=== PATIENT | female | born 1980 | race Caucasian/White ===

== ENCOUNTER 2024-06-16 16:09 | Emergency (ER) | payer MEDICAID, SELFPAY ==
[2024-06-16 16:55] VITALS: BP 135/83; PULSE 68; RESP 18; TEMP 36.8; O2SAT 98; BMI 27.1
--- NOTE | 2024-06-16 17:05 | XR_ITS ---
Examination: CT abdomen and pelvis without contrast. Coronal 3-D reconstructions. Sagittal 2-D reconstructions. Date and time of exam:June 16, 2024 1847 hours Comparison August 12, 2022 INDICATIONS: Right flank pain onset today CTDI: vol (mGy): 8 DLP: (mGycm): 451 Technique: Axial images of the abdomen have been obtained, 3 mm slice thickness Intravenous contrast material has not been administered. Low dose protocols were performed. One or more of the following dose reduction techniques were used; automated exposure control, adjustment of the mA and/or KV according to patient size, use of iterative reconstruction technique. Findings: No focal liver or splenic lesions Absent gallbladder No pancreatic or adrenal mass No renal or ureteral calculi, no hydronephrosis Aorta is not enlarged 6 mm fat-containing umbilical hernia Appendix is mildly thickened but no periappendiceal inflammatory change No bowel obstruction No pelvic mass Urinary bladder intact Grade 1 spondylolisthesis L5 on S1 IMPRESSION: No renal or ureteral calculi, no hydronephrosis Normal appendix No bladder mass or bladder calculi
--- NOTE | 2024-06-16 17:05 | PD.EDBACK ---
ED Back Injury Pain RME/HPI General Chief Complaint: Back Pain/Injury Stated Complaint: LOWER BACK PAIN Time Seen by Provider: 06/16/24 16:28 Source: patient, RN notes reviewed and old records reviewed Arrival date/time: 06/16/24 16:09 Paraspinal lumbar B/L Mode of arrival: ambulatory Limitations: no limitations RME / HPI RME / HPI Narrative: 43yof presents to ED for 2-3 week history of generalized lower back pain radiating to RLQ. Hx chronic back pain, takes norco daily but recently medication not providing relief. Denies recent injury/trauma or fall. No fever, nausea/vomiting, dysuria, hematuria, LE weakness, numbness/tingling or bowel/bladder incontinence reported. 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 Medications ?Medication ?Instructions ?Recorded ?Confirmed empagliflozin 25 mg tablet 25 mg PO QDAY 12/21/18 01/24/20 (Jardiance) gabapentin 600 mg tablet 800 mg PO TID 12/21/18 01/24/20 loratadine 10 mg tablet 10 mg PO QDAY 12/21/18 01/24/20 losartan 50 mg tablet 25 mg PO QDAY 12/21/18 01/24/20 duloxetine 30 mg capsule,delayed 30 mg PO QDAY 01/24/20 01/24/20 release ibuprofen 800 mg tablet 800 mg PO TID PRN Pain 01/24/20 01/24/20 methocarbamol 750 mg tablet 750 mg PO Q8H 01/24/20 01/24/20 topiramate 50 mg tablet 50 mg PO BID 01/24/20 01/24/20 trazodone 100 mg tablet 100 mg PO QDAY 01/24/20 01/24/20 Previous Rx's ?Medication ?Instructions ?Recorded amoxicillin 875 mg-potassium 1 tab PO Q12H #20 tabs 03/07/21 clavulanate 125 mg tablet (Augmentin) prednisone 10 mg tablet 10 mg PO QDAY #7 tabs 03/07/21 albuterol sulfate 90 mcg/actuation 1 inh inhalation QID PRN shortness 09/11/21 aerosol inhaler (ProAir HFA) of breath or wheezing #6.7 grams doxycycline monohydrate 100 mg 100 mg PO BID #20 caps 09/11/21 capsule prednisone 50 mg tablet 50 mg PO QDAY #5 tabs 09/11/21 ondansetron 4 mg disintegrating 4 mg PO Q8H PRN nausea and 08/12/22 tablet vomiting #10 tabs ibuprofen 600 mg tablet 600 mg PO Q6H PRN pain #30 tabs 06/16/24 lidocaine 5 % topical patch 1 patch topical Q24H #15 ea 06/16/24 methocarbamol 500 mg tablet 1,000 mg (2 x 500 mg) PO Q8H PRN 06/16/24 pain #30 tabs Allergies Allergy/AdvReac Type Severity Reaction Status Date / Time naproxen Allergy Mild Rash Verified 06/16/24 16:12 tramadol Allergy Vomiting Verified 06/16/24 16:12 Review of Systems Review of Systems Systems Reviewed: All systems reviewed, normal except as documented Constitutional Constitutional: Denies chills and Denies fever(s) Gastrointestinal Gastrointestinal: Reports abdominal pain, Denies fecal incontinence, Denies loose stools, Denies nausea and Denies vomiting Genitourinary Genitourinary: Denies dysuria, Denies flank pain, Denies hematuria and Denies urinary incontinence Musculoskeletal Musculoskeletal: Reports back pain, Denies numbness and Denies tingling Neurologic Neurologic: Denies localized weakness, Denies numbness and Denies tingling Past Medical History Past Medical History CARDIAC: Positive Hypertension RESPIRATORY: Positive Asthma and Sleep Apnea MUSCULOSKELETAL: Positive Musculoskeletal Disorders (Chronic back pain) and Degenerative Disk Disease ENDOCRINE: Positive Diabetes Mellitus Type 2 Family History FAMILY HISTORY: Positive Family Neurologic Problems (Epilepsy (sister)) Social History SMOKING STATUS: Current some day smoker SUBSTANCE USE: does not use ALCOHOL: Never ED Exam General Limitations: Present no limitations General appearance: Present alert and in no apparent distress Head Head exam: Present atraumatic and normocephalic Eye Eye exam: Present normal appearance, PERRL and EOMI ENT ENT exam: Present normal exam and mucous membranes moist Neck Neck exam: Present normal inspection and full ROM Chest Chest inspection: Present normal inspection and symmetric chest wall rise Respiratory Respiratory exam: Present normal lung sounds bilaterally; Absent respiratory distress Cardiovascular Cardiovascular exam: Present regular rate and normal rhythm Abdominal Exam Abdominal exam: Present soft; Absent distention, tenderness, guarding or rebound Back Exam Back exam: Present full ROM and tenderness (paraspinal lumbar b/l); Absent CVA tenderness (R), CVA tenderness (L) or vertebral tenderness Neurological Exam Neurological exam: Present alert and oriented X3 Psychiatric Psychiatric exam: Present normal affect and normal mood Skin Skin exam: Present warm, dry, intact and normal color Course Quality Measures none Orders Category Date Time Status CT abdomen pelvis wo con Stat Exams 06/16/24 17:05 Completed HCG Qualitative,Urine Stat Lab 06/16/24 17:45 Completed UA [Urinalysis] Stat Lab 06/16/24 17:45 Completed CYCLObenzaPRINE [Flexeril] Med 06/16/24 17:07 Discontinued 10 mg PO X1 ONE CYCLObenzaPRINE [Flexeril] Med 06/16/24 17:27 Discontinued 5 mg PO X1 ONE Ketorolac Inj [Toradol Inj] Med 06/16/24 17:05 Discontinued 30 mg IM X1 ONE Vital Signs Vital signs: Vital Signs Temperature 98.3 F 06/16/24 16:55 Pulse Rate 68 06/16/24 16:55 Respiratory Rate 18 06/16/24 16:55 Blood Pressure 135/83 H 06/16/24 16:55 Pulse Oximetry (%) 98 06/16/24 16:55 Oxygen Delivery Method Room Air 06/16/24 16:55 Back Pain / Injury MDM Narrative MDM Narrative:: 43yof presents to ED for 2-3 week history of generalized lower back pain radiating to RLQ. Hx chronic back pain, takes norco daily but recently medication not providing relief. Denies recent injury/trauma or fall. No fever, nausea/vomiting, dysuria, hematuria, LE weakness, numbness/tingling or bowel/bladder incontinence reported. 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 Pain improved after medications administered. Patient is neurologically intact, able to ambulate without difficulty. Encouraged rest, NSAID, muscle relaxer, ice/heat application prn. Follow-up with PCP or pain management as needed. Stable for discharge, RTED precautions given. Patient data External records reviewed:: [facility] previous records (12/30/2022 ED visit for abscess) Clinical information provided by:: patient Social determinants that could affect healthcare access:: other (specify) (Unemployed) Patient has the following chronic illnesses:: Chronic back pain How is presenting disease/condition affected by chronic disease/condition?: exacerbated by Evaluation data The following diagnostics were reviewed and interpreted by me:: lab results and radiology exam(s) Lab and/or radiology exams considered but not ordered:: CBC, CMP Interpretation Summary: UA leuk positive but suspect contaminant, micro is negative CT abdomen/pelvis IMPRESSION: No renal or ureteral calculi, no hydronephrosis Normal appendix No bladder mass or bladder calculi Dictated By: Esequiel Jiménez MD Medications / Prescriptions Medications or Prescriptions considered but not ordered:: No antibiotics recommended at this time Medication administrations:: Medication Administration History Discontinued Medications Cyclobenzaprine HCl (Cyclobenzaprine 5 Mg Tablet) 10 mg PO X1 ONE Stop: 06/16/24 17:08 Last Admin: 06/16/24 17:25 Dose: 5 mg Documented By: BOZENA Comments: OTHER PILL DROPPED TO FLOOR Cyclobenzaprine HCl (Cyclobenzaprine 5 Mg Tablet) 5 mg PO X1 ONE Stop: 06/16/24 17:28 Last Admin: 06/16/24 18:08 Dose: 5 mg Documented By: MACHO Ketorolac Tromethamine (Ketorolac Inj 60 Mg/2 Ml Vial) 30 mg IM X1 ONE Stop: 06/16/24 17:06 Last Admin: 06/16/24 17:18 Dose: 30 mg Documented By: BOZENA Above medications administered in ED Consultations Consultation(s) initiated? (list below): No Diagnosis Differential diagnosis back pain/injury: lumbar radiculopathy, sciatica, strain of lumbar region, renal colic and pyelonephritis Most likely diagnosis given after review of the tests above:: Acute on chronic back pain Admission Indicated Admission indicated?: not indicated Admission Request Was there a request for admission?: No Disposition Plan Disposition Plan: Discharge Discharge Attestation Discharge Attestation: The patient and all family members were given an opportunity to ask questions and understood the discharge instructions. Discharge instructions specifically effects, indications for sooner follow up or return to the emergency department, and the expected course of current diagnosis. Patient condition: Stable Discharge Plan Plan Patient Disposition: HOME (Self Care) Patient condition on transfer: Stable Prescriptions/Referrals Prescriptions/Med Rec: New ibuprofen 600 mg tablet 600 mg PO Q6H PRN (Reason: pain) Qty: 30 0RF methocarbamol 500 mg tablet 1,000 mg PO Q8H PRN (Reason: pain) Qty: 30 0RF lidocaine 5 % adhesive patch,medicated 1 patch topical Q24H Qty: 15 0RF Rx Instructions: leave on most painful area for up to 12 hrs No Action losartan 50 mg Tablet 25 mg PO QDAY gabapentin 600 mg Tablet 800 mg PO TID loratadine 10 mg Tablet 10 mg PO QDAY Jardiance 25 mg Tablet 25 mg PO QDAY amoxicillin-pot clavulanate [Augmentin] 875-125 mg tablet 1 tab PO Q12H Qty: 20 0RF prednisone 10 mg tablet 10 mg PO QDAY Qty: 7 0RF Taper: Prednisone Taper 20 mg DAILY for 2 Days and 0 Hour 10 mg DAILY for 2 Days and 0 Hour 5 mg DAILY for 7 Days and 0 Hour doxycycline monohydrate 100 mg capsule 100 mg PO BID Qty: 20 0RF prednisone 50 mg tablet 50 mg PO QDAY Qty: 5 0RF albuterol sulfate [ProAir HFA] 90 mcg/actuation HFA aerosol inhaler 1 inh inhalation QID PRN (Reason: shortness of breath or wheezing) Qty: 6.7 0RF ibuprofen 800 mg Tablet 800 mg PO TID PRN (Reason: Pain) methocarbamol 750 mg Tablet 750 mg PO Q8H trazodone 100 mg Tablet 100 mg PO QDAY topiramate 50 mg Tablet 50 mg PO BID duloxetine 30 mg Capsule,Delayed Release(Dr/Ec) 30 mg PO QDAY ondansetron 4 mg tablet,disintegrating 4 mg PO Q8H PRN (Reason: nausea and vomiting) Qty: 10 0RF Referrals: Ziyad Lucas PA-C [Primary Care Provider] - In 1 week Problem List Clinical Impression: Acute on chronic back pain Patient/Caregiver Discharge Instructions Education Materials: ED Back Pain (Acute or Chronic) Print Language: Northern Irish Stand Alone Forms: Janessa Award Info., Patient Portal Info Letter PA/CORTEZ Supervising Physician PA/ORTHOPEDIC NURSE PRACTITIONER Supervising Physician: Cassandra
[2024-06-16] MEDS: KETOROLAC INJ 60 MG/2 ML VIAL 30 MG IM (17:18)
[2024-06-16] MEDS: CYCLObenzaPRINE 5 MG TABLET 10 MG PO (17:25)
--- NOTE | 2024-06-16 17:26 | PC.NURSE ---
WASTED FLEXERIL THAT ELL TO FLOOR PER PHARMACY PUT A NEW ORDER IN
[2024-06-16 18:01] LABS: Collection Type, Urine Clean Catch; RBC,Urine 0 /hpf (0-3)
[2024-06-16] MEDS: CYCLObenzaPRINE 5 MG TABLET PO (18:08)
[2024-06-16 18:12] LABS: Bacteria,Urine Rare; Bilirubin,Urine Negative (Negative); Blood,Urine Negative (Negative); Clarity,Urine Turbid (Clear/Hazy); Color,Urine Lt-Yellow (Lt Yel-Yel); Glucose, Urine Negative (Negative); Ketones,Urine Negative (Negative); Leukocyte Esterase,Urine Positive (Negative); Nitrite,Urine Negative (Negative); Protein,Urine Negative (Neg - Trace); Specific Gravity,Urine 1.008 (1.001-1.035); Squamous Epithelial Cell,Urine 3 /hpf (0-5); Urobilinogen,Urine Negative mg/dL (0.0-1.0); WBC,Urine 1 /hpf (0-5)
[2024-06-16 18:14] LABS: HCG Qualitative,Urine Negative
[2024-06-16 20:04] VITALS: RESP 18
== END 2024-06-16 20:05 | disposition home or self-care (01) ==
PROVIDERS: Physician Assistant; Emergency Provider Emergency Medicine; PCP Physician Assistant
DX: M54.50 Low back pain, unspecified (principal); R10.9 Unspecified abdominal pain; G89.29 Other chronic pain
CPT/HCPCS: 74176; 81001; 81025; 96372; 99284; J1885; A9270

== ENCOUNTER 2024-12-22 15:16 | Emergency (ER) | payer MEDICAID, SELFPAY ==
[2024-12-22 15:49] VITALS: BP 137/84; PULSE 76; RESP 18; TEMP 36.5; O2SAT 100
--- NOTE | 2024-12-22 15:54 | EDRME_ITS ---
Rapid Medical Screening Exam E Arrival date/time: 12/22/24 15:16 This is a 44-year-old female that comes into the emergency room with complaints of worsening wound to her right foot. 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 Patient was placed on doxycycline but she states that the swelling and pain has gotten worse to her right foot. Patient states the wound looks worse. Patient also has a history of depression and high blood pressure. I have greeted and performed a focused initial assessment of this patient. Initial appropriate labs ordered at this time. A comprehensive ED assessment and evaluation of the patient and analysis of all test and completion of medical decision making process will be conducted by additional ED provider. Chief Complaint: Ankle/Foot Injury Time Seen by Provider: 12/22/24 15:23 Vital signs: Vital Signs Temperature 97.7 F 12/22/24 15:49 Pulse Rate 76 12/22/24 15:49 Respiratory Rate 18 12/22/24 15:49 Blood Pressure 137/84 H 12/22/24 15:49 Pulse Oximetry (%) 100 12/22/24 15:49 Oxygen Delivery Method Room Air 12/22/24 15:49
--- NOTE | 2024-12-22 15:55 | XR_ITS ---
Examination: Foot, right, 3 views Technique: AP, oblique, lateral views foot, 3 views Date and time of exam: December 22, 2024, 1621 hrs. Indications: Right foot swelling and pain beginning 3 weeks ago. Findings: Prominent hallux valgus bunion deformity Toe flexion second through fifth digits at the proximal interphalangeal joints No acute fracture No cortical bone destruction There is soft tissue swelling dorsum of the foot Impression: No acute fracture No foreign body No felix cortical bone destruction
[2024-12-22 16:43] LABS: Basophils # (Auto) 0.1 Thou/mm3 (0.0-0.2); Basophils % (Auto) 1 % (0-2.5); Eosinophils # (Auto) 0.1 Thou/mm3 (0.0-0.5); Eosinophils % (Auto) 1 % (0-10); Hematocrit 43.2 % (36.0-46.0); Hemoglobin 14.5 g/dL (12.0-16.0); Immature Granulocytes Auto 0.04 Thou/mm3 (0.00-0.00); Lymphocytes # (Auto) 5.7 Thou/mm3 (1.0-4.8); Lymphocytes % (Auto) 56 % (10-50); Mean Corpuscular HGB Conc 33.6 g/dl (31.0-37.0); Mean Corpuscular Hemoglobin 29.9 pg (25.0-35.0); Mean Corpuscular Volume 89 fL (80-100); Monocytes # (Auto) 0.6 Thou/mm3 (0.0-0.8); Monocytes % (Auto) 6 % (0-12); Neutrophils # (Auto) 3.8 Thou/mm3 (1.8-7.7); Neutrophils % (Auto) 37 % (37-80); Nucleated Red Blood Cell # 0.00 Thou/mm3 (0.00-0.00); Nucleated Red Blood Cell % 0 /100 WBC (0); Platelet Count 289 Thou/mm3 (140-440); RDW Standard Deviation 41.6 fL (36.4-46.3); Red Blood Count 4.85 Miln/mm3 (4.00-5.20); White Blood Count 10.3 Thou/mm3 (3.6-11.0)
[2024-12-22 17:10] LABS: Alanine Aminotransferase 41 U/L (10-49); Albumin, Serum 4.4 gm/dL (3.5-5.0); Albumin/Globulin Ratio 1.8 (1.2-2.2); Alkaline Phosphatase 74 U/L (46-116); Anion Gap 7 (7-16); Aspartate Amino Transferase 28 U/L (0-34); BUN/Creatinine Ratio 10 Ratio (12-20); Bilirubin,Total 0.3 mg/dL (0.3-1.2); Blood Urea Nitrogen 8 mg/dL (9-23); C-Reactive Protein < 0.5 mg/dL (0.0-0.9); Calcium 10.0 mg/dL (8.3-10.6); Calcium (Corrected) 10.0 mg/dL (8.5-10.1); Carbon Dioxide 29.5 mMol/L (20.0-31.0); Chloride 105 mMol/L (98-107); Creatinine (Component) 0.8 mg/dL (0.6-1.3); Estimated Creatinine Clearance 86.8 mL/min (>60); Globulin 2.5 gm/dL (2.3-3.5); Glucose 181 mg/dL (74-106); Osmolality,Calculated 284 (275-295); Potassium 4.0 mMol/L (3.4-5.1); Sodium 141 mMol/L (136-145); Total Protein 6.9 gm/dL (5.7-8.2); eGFR > 60 See Note
[2024-12-22 18:56] VITALS: BP 170/83; PULSE 75; RESP 18; TEMP 37.1; O2SAT 98
--- NOTE | 2024-12-22 19:00 | PD.EDADULT ---
ED General RME/HPI General Chief complaint: Ankle/Foot Injury Stated complaint: WOUND ON R) FOOT, INFECTED Time Seen by Provider: 12/22/24 15:23 Arrival date/time: 12/22/24 15:16 CC: Left foot sore with pain HPI ongoing for the past several days is already on doxycycline by her PCP Dr. Boucher, and is waiting for referral for wound management. Patient states she woke up this morning found little redness that she had not seen to the day before. Patient denies fever chills chest pain shortness breath or difficulty breathing patient is a known diabetic. RME / HPI RME / HPI narrative: 12/22/24 15:16 This is a 44-year-old female that comes into the emergency room with complaints of worsening wound to her right foot. 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 Patient was placed on doxycycline but she states that the swelling and pain has gotten worse to her right foot. Patient states the wound looks worse. Patient also has a history of depression and high blood pressure. I have greeted and performed a focused initial assessment of this patient. Initial appropriate labs ordered at this time. A comprehensive ED assessment and evaluation of the patient and analysis of all test and completion of medical decision making process will be conducted by additional ED provider. Related Data Home Medications ?Medication ?Instructions ?Recorded ?Confirmed empagliflozin 25 mg tablet 25 mg PO QDAY 12/21/18 01/24/20 (Jardiance) gabapentin 600 mg tablet 800 mg PO TID 12/21/18 01/24/20 loratadine 10 mg tablet 10 mg PO QDAY 12/21/18 01/24/20 losartan 50 mg tablet 25 mg PO QDAY 12/21/18 01/24/20 duloxetine 30 mg capsule,delayed 30 mg PO QDAY 01/24/20 01/24/20 release ibuprofen 800 mg tablet 800 mg PO TID PRN Pain 01/24/20 01/24/20 methocarbamol 750 mg tablet 750 mg PO Q8H 01/24/20 01/24/20 topiramate 50 mg tablet 50 mg PO BID 01/24/20 01/24/20 trazodone 100 mg tablet 100 mg PO QDAY 01/24/20 01/24/20 Previous Rx's ?Medication ?Instructions ?Recorded amoxicillin 875 mg-potassium 1 tab PO Q12H #20 tabs 12/12/21 clavulanate 125 mg tablet (Augmentin) prednisone 10 mg tablet 10 mg PO QDAY #7 tabs 03/07/21 albuterol sulfate 90 mcg/actuation 1 inh inhalation QID PRN shortness 09/11/21 aerosol inhaler (ProAir HFA) of breath or wheezing #6.7 grams doxycycline monohydrate 100 mg 100 mg PO BID #20 caps 09/11/21 capsule prednisone 50 mg tablet 50 mg PO QDAY #5 tabs 09/11/21 ondansetron 4 mg disintegrating 4 mg PO Q8H PRN nausea and 08/12/22 tablet vomiting #10 tabs ibuprofen 600 mg tablet 600 mg PO Q6H PRN pain #30 tabs 06/16/24 lidocaine 5 % topical patch 1 patch topical Q24H #15 ea 06/16/24 methocarbamol 500 mg tablet 1,000 mg (2 x 500 mg) PO Q8H PRN 06/16/24 pain #30 tabs Allergies Allergy/AdvReac Type Severity Reaction Status Date / Time naproxen Allergy Mild Rash Verified 12/22/24 15:20 tramadol Allergy Vomiting Verified 12/22/24 15:20 Review of Systems Review of Systems Narrative Review of Systems: GEN: No fever, no chills, no weight loss EYES: No discharge, no visual changes, no pain HEENT: No ear pain, no congestion, no sore throat PULM: No shortness of breath, no cough, no congestion CV: No chest pain, no dyspnea on exertion, no palpitations GI: No nausea, no vomiting, no diarrhea, no pain, no constipation : No frequency, no urgency, no dysuria MUSC/SKEL: No joint pain, no back pain SKIN: No rash PSYCH: No hallucinations, no depression HEME/LYMPH: No easy bleeding or bruising tendencies NEURO: No weakness, no headache Past Medical History Past Medical History NEUROLOGIC: Negative Neurological Disorders CARDIAC: Positive Cardiac Disorders, Myocardial Infarction (2020) and Hypertension; Negative Congestive Heart Failure RESPIRATORY: Positive Chronic Obstructive Pulmonary Disease (COPD), Asthma and Sleep Apnea GASTROINTESTINAL: Negative Gastrointestinal Disorders GENITOURINARY: Negative Genitourinary Disorders or Renal Disease REPRODUCTIVE: Negative Pelvic Inflammatory Disease MUSCULOSKELETAL: Positive Musculoskeletal Disorders (Chronic back pain) and Degenerative Disk Disease ENDOCRINE: Positive Endocrine Disorders and Diabetes Mellitus Type 2; Negative Diabetes Mellitus Type 1 HEMATOLOGIC: Negative Blood Disorders or Sickle Cell Disease Family History FAMILY HISTORY: Positive Family Neurologic Problems (Epilepsy (sister)) Social History SMOKING STATUS: Current every day smoker SUBSTANCE USE: does not use ED Exam Narrative Physical exam: [General: Not in any acute distress Head normocephalic HEENT: Within acceptable limits Neck is supple nontender Chest equal chest rise nontender to palpation Respiratory: Clear to auscultation no wheezes crackles or rubs CV: Rate rhythm is regular no murmurs rubs or clicks Abdomen is distended secondary to body habitus soft nontender no masses positive bowel sounds all 4 quadrants Back: No CVA tenderness no spinous process tenderness from cervical spine thoracic and lumbar spine Skin: 1 cm diameter circular ulceration with small amount of eschar minimal erythematous border the dorsum of the foot at the base of the third digit. No streaking not warm to touch no exudate no odor open induration or ulceration. Otherwise skin is intact no petechiae rash induration ulceration or crepitus Extremities: Moving all extremity against resistance cap refill less than 2 seconds neurosensory intact Neuro: Awake alert oriented x3 Glascow coma 15 no focal deficits] Course Quality Measures none Orders Category Date Time Status XR foot comp RT min 3V Stat Exams 12/22/24 15:55 Completed CBC Stat Lab 12/22/24 16:36 Completed CRP [C-Reactive Protein] Stat Lab 12/22/24 16:36 Completed Comprehensive Metabolic Panel Stat Lab 12/22/24 16:36 Completed Vital Signs Vital signs: Vital Signs Temperature 97.7 F 12/22/24 15:49 Pulse Rate 76 12/22/24 15:49 Respiratory Rate 18 12/22/24 15:49 Blood Pressure 137/84 H 12/22/24 15:49 Pulse Oximetry (%) 100 12/22/24 15:49 Oxygen Delivery Method Room Air 12/22/24 15:49 Discharge Plan Plan Patient Disposition: HOME (Self Care) Patient condition on transfer: Stable Prescriptions/Referrals Prescriptions/Med Rec: No Action losartan 50 mg Tablet 25 mg PO QDAY gabapentin 600 mg Tablet 800 mg PO TID loratadine 10 mg Tablet 10 mg PO QDAY Jardiance 25 mg Tablet 25 mg PO QDAY amoxicillin-pot clavulanate [Augmentin] 875-125 mg tablet 1 tab PO Q12H Qty: 20 0RF prednisone 10 mg tablet 10 mg PO QDAY Qty: 7 0RF Taper: Prednisone Taper 20 mg DAILY for 2 Days and 0 Hour 10 mg DAILY for 2 Days and 0 Hour 5 mg DAILY for 7 Days and 0 Hour doxycycline monohydrate 100 mg capsule 100 mg PO BID Qty: 20 0RF prednisone 50 mg tablet 50 mg PO QDAY Qty: 5 0RF albuterol sulfate [ProAir HFA] 90 mcg/actuation HFA aerosol inhaler 1 inh inhalation QID PRN (Reason: shortness of breath or wheezing) Qty: 6.7 0RF ibuprofen 800 mg Tablet 800 mg PO TID PRN (Reason: Pain) methocarbamol 750 mg Tablet 750 mg PO Q8H trazodone 100 mg Tablet 100 mg PO QDAY topiramate 50 mg Tablet 50 mg PO BID duloxetine 30 mg Capsule,Delayed Release(Dr/Ec) 30 mg PO QDAY ibuprofen 600 mg tablet 600 mg PO Q6H PRN (Reason: pain) Qty: 30 0RF methocarbamol 500 mg tablet 1,000 mg PO Q8H PRN (Reason: pain) Qty: 30 0RF lidocaine 5 % adhesive patch,medicated 1 patch topical Q24H Qty: 15 0RF Rx Instructions: leave on most painful area for up to 12 hrs ondansetron 4 mg tablet,disintegrating 4 mg PO Q8H PRN (Reason: nausea and vomiting) Qty: 10 0RF Referrals: Ziyad Lucas PA-C [Primary Care Provider] - In 1 week Problem List Clinical Impression: Diabetic foot ulcer Patient/Caregiver Discharge Instructions Other Activity Instructions:: Keep the site clean and dry follow-up with Dr. Boucher continue to take the antibiotics he prescribed, follow-up with wound care as soon as it is set up. If there is a worsening of symptoms including streaking up your ankle or leg fever or tripling in size return the emergency room for reevaluation. Education Materials: ED Diabetic Foot Care Print Language: Bengali Stand Alone Forms: Janessa Award Info., Work/School Release, Patient Portal Info Letter ROSALBA/CORTEZ Supervising Physician ROSALBA/CORTEZ Supervising Physician: Justin AUGUSTIN Clinical Information Provided by: patient Medical Records reviewed [facility] Meds/Rx considered, not ordered None Labs/Rad/Tests considered, not ordered None Chronic Illness/Social Conditions Explain: Diabetes EKG EKG not done Labs Labs: interpreted by me Lab(s) Interpretation(s): CBC shows no acute leukocytosis anemia thrombocytopenia CMP shows elevated blood glucose of 181 no other electrolyte imbalances renal impairment transaminitis or T. bili elevation CRP is within acceptable limits. Imaging Imaging interpretation: interpreted by me Imaging Interpretation(s): Foot x-ray shows no moth-eaten appearance is suggested of osteomyelitis no fractures. Medication Administration(s) none Diagnosis Differential Diagnosis ED Complaint MDM: Foot ulcer cellulitis osteomyelitis
== END 2024-12-22 19:39 | disposition home or self-care (01) ==
PROVIDERS: Nurse Practitioner Family; Emergency Provider Emergency Medicine; PCP Physician Assistant
DX: E11.621 Type 2 diabetes mellitus with foot ulcer (principal); L97.519 Non-pressure chronic ulcer of other part of right foot with unspecified severity; Z79.84 Long term (current) use of oral hypoglycemic drugs
CPT/HCPCS: 36415; 73630; 80053; 85025; 86140; 99283

== ENCOUNTER 2025-01-01 19:53 | Emergency (ER) | payer MEDICAID, SELFPAY ==
[2025-01-01 19:55] VITALS: BMI 26.9
[2025-01-01 20:43] VITALS: BP 122/82; PULSE 78; RESP 17; TEMP 36.7; O2SAT 96
--- NOTE | 2025-01-01 21:00 | XR_ITS ---
Examination: Foot, right, 3 views Technique: AP, oblique, lateral views foot, 3 views Date and time of exam: December,, 2115 hours, comparison 12/22/2024 INDICATIONS: Chronic nonhealing ulcer right foot, diagnosis diabetic FINDINGS: The toes are dorsiflexed Prominent hallux valgus bunion deformity No foreign body. No felix cortical bone destruction IMPRESSION: No felix cortical bone destruction
--- NOTE | 2025-01-01 21:01 | PD.EDSKIN ---
ED Skin Abcess FB-RME/HPI General Chief complaint: General Adult/Misc Complain Stated complaint: DIABETIC ULCER RECHECK Time Seen by Provider: 01/01/25 20:15 Source: patient, RN notes reviewed and old records reviewed Arrival date/time: 01/01/25 19:53 Mode of arrival: ambulatory Limitations: no limitations RME / HPI RME / HPI narrative: 44yof presents to ED for evaluation of chronic right foot ulcer. Patient reports redness surrounding ulcer for the past 1.5 weeks. She recently competed course of doxy prescribed by pcp without sx changes. No fever, n/v, red streaking or wound drainage reported. Related Data Home Medications ?Medication ?Instructions ?Recorded ?Confirmed empagliflozin 25 mg tablet 25 mg PO QDAY 12/21/18 01/24/20 (Jardiance) gabapentin 600 mg tablet 800 mg PO TID 12/21/18 01/24/20 loratadine 10 mg tablet 10 mg PO QDAY 12/21/18 01/24/20 losartan 50 mg tablet 25 mg PO QDAY 12/21/18 01/24/20 duloxetine 30 mg capsule,delayed 30 mg PO QDAY 01/24/20 01/24/20 release ibuprofen 800 mg tablet 800 mg PO TID PRN Pain 01/24/20 01/24/20 methocarbamol 750 mg tablet 750 mg PO Q8H 01/24/20 01/24/20 topiramate 50 mg tablet 50 mg PO BID 01/24/20 01/24/20 trazodone 100 mg tablet 100 mg PO QDAY 01/24/20 01/24/20 Previous Rx's ?Medication ?Instructions ?Recorded amoxicillin 875 mg-potassium 1 tab PO Q12H #20 tabs 03/07/21 clavulanate 125 mg tablet (Augmentin) prednisone 10 mg tablet 10 mg PO QDAY #7 tabs 03/07/21 albuterol sulfate 90 mcg/actuation 1 inh inhalation QID PRN shortness 09/11/21 aerosol inhaler (ProAir HFA) of breath or wheezing #6.7 grams doxycycline monohydrate 100 mg 100 mg PO BID #20 caps 09/11/21 capsule prednisone 50 mg tablet 50 mg PO QDAY #5 tabs 09/11/21 ondansetron 4 mg disintegrating 4 mg PO Q8H PRN nausea and 08/12/22 tablet vomiting #10 tabs ibuprofen 600 mg tablet 600 mg PO Q6H PRN pain #30 tabs 06/16/24 lidocaine 5 % topical patch 1 patch topical Q24H #15 ea 06/16/24 methocarbamol 500 mg tablet 1,000 mg (2 x 500 mg) PO Q8H PRN 06/16/24 pain #30 tabs cephalexin 500 mg capsule 500 mg PO Q6H 7 days #28 caps 01/01/25 Allergies Allergy/AdvReac Type Severity Reaction Status Date / Time naproxen Allergy Mild Rash Verified 01/01/25 19:59 tramadol Allergy Vomiting Verified 01/01/25 19:59 Review of Systems Review of Systems Systems Reviewed: All systems reviewed, normal except as documented Constitutional Constitutional: Denies fever(s) Gastrointestinal Gastrointestinal: Denies nausea and Denies vomiting Integumentary/Breasts Comments: Reports DM ulcer, redness ED Exam General Limitations: Present no limitations General appearance: Present alert and in no apparent distress Head Head exam: Present atraumatic and normocephalic Eye Eye exam: Present normal appearance, PERRL and EOMI ENT ENT exam: Present normal exam and mucous membranes moist Neck Neck exam: Present normal inspection and full ROM Chest Chest inspection: Present normal inspection and symmetric chest wall rise Respiratory Respiratory exam: Present normal lung sounds bilaterally; Absent respiratory distress Cardiovascular Cardiovascular exam: Present regular rate and normal rhythm Extremities Exam Extremities exam: Present other (Partial R foot amputation. Small 1cm ulceration to dorsal R foot. Faint surrounding erythema/rash. No swelling, fluctuance or drainage) Neurological Exam Neurological exam: Present alert and oriented X3 Psychiatric Psychiatric exam: Present normal affect and normal mood Skin Skin exam: Present warm, dry and intact Course Quality Measures none Orders Category Date Time Status XR foot comp RT min 3V Stat Exams 01/01/25 21:00 Completed CBC Stat Lab 01/01/25 21:42 Completed CMP [Comprehensive Metabolic Panel] Stat Lab 01/01/25 21:42 Completed CRP [C-Reactive Protein] Stat Lab 01/01/25 21:42 Completed ESR [Sed Rate (ESR)] Stat Lab 01/01/25 21:42 Completed Path Review Blood Smear Stat Lab 01/01/25 21:42 Completed Vital Signs Vital signs: Vital Signs Temperature 98.1 F 01/01/25 20:43 Pulse Rate 78 01/01/25 20:43 Respiratory Rate 17 01/01/25 20:43 Blood Pressure 122/82 01/01/25 20:43 Pulse Oximetry (%) 96 01/01/25 20:43 Oxygen Delivery Method Room Air 01/01/25 20:43 Skin / Abscess / Foreign Body MDM Narrative MDM Narrative:: 44yof presents to ED for evaluation of chronic right foot ulcer. Patient reports redness surrounding ulcer for the past 1.5 weeks. She recently competed course of doxy prescribed by pcp without sx changes. No fever, n/v, red streaking or wound drainage reported. ED workup and exam reassuring. Will rx Keflex for possible mild infection, however, redness surrounding wound almost appears to be rash?like/dermatitis. Encouraged close follow-up with podiatry, Dr. Beyer. Patient states she has an upcoming appointment. Stable for discharge, RTED precautions given. Patient data External records reviewed:: [facility] previous records (12/22/24 ED visit for DM foot ulcer) Clinical information provided by:: patient Social determinants that could affect healthcare access:: other (specify) (unemployed) Patient has the following chronic illnesses:: DM How is presenting disease/condition affected by chronic disease/condition?: caused by Evaluation data The following diagnostics were reviewed and interpreted by me:: lab results and radiology exam(s) Lab and/or radiology exams considered but not ordered:: none Interpretation Summary: Mild leukocytosis, wbc 12 No anemia Foot xrays: no acute process per my read Medications / Prescriptions Medications or Prescriptions considered but not ordered:: none Medication administrations:: none Consultations Consultation(s) initiated? (list below): No Diagnosis Skin/Abscess Differential Diagnosis: other (Cellulitis, abscess, ulcer, osteomyelitis, gangrene) Most likely diagnosis given after review of the tests above:: Chronic foot ulcer Admission Indicated Admission indicated?: not indicated Admission Request Was there a request for admission?: No Disposition Plan Disposition Plan: Discharge Discharge Attestation Discharge Attestation: The patient and all family members were given an opportunity to ask questions and understood the discharge instructions. Discharge instructions specifically effects, indications for sooner follow up or return to the emergency department, and the expected course of current diagnosis. Patient condition: Stable Discharge Plan Plan Patient Disposition: HOME (Self Care) Patient condition on transfer: Stable Prescriptions/Referrals Prescriptions/Med Rec: New cephalexin 500 mg capsule 500 mg PO Q6H 7 Days Qty: 28 0RF No Action losartan 50 mg Tablet 25 mg PO QDAY gabapentin 600 mg Tablet 800 mg PO TID loratadine 10 mg Tablet 10 mg PO QDAY Jardiance 25 mg Tablet 25 mg PO QDAY amoxicillin-pot clavulanate [Augmentin] 875-125 mg tablet 1 tab PO Q12H Qty: 20 0RF prednisone 10 mg tablet 10 mg PO QDAY Qty: 7 0RF Taper: Prednisone Taper 20 mg DAILY for 2 Days and 0 Hour 10 mg DAILY for 2 Days and 0 Hour 5 mg DAILY for 7 Days and 0 Hour doxycycline monohydrate 100 mg capsule 100 mg PO BID Qty: 20 0RF prednisone 50 mg tablet 50 mg PO QDAY Qty: 5 0RF albuterol sulfate [ProAir HFA] 90 mcg/actuation HFA aerosol inhaler 1 inh inhalation QID PRN (Reason: shortness of breath or wheezing) Qty: 6.7 0RF ibuprofen 800 mg Tablet 800 mg PO TID PRN (Reason: Pain) methocarbamol 750 mg Tablet 750 mg PO Q8H trazodone 100 mg Tablet 100 mg PO QDAY topiramate 50 mg Tablet 50 mg PO BID duloxetine 30 mg Capsule,Delayed Release(Dr/Ec) 30 mg PO QDAY ibuprofen 600 mg tablet 600 mg PO Q6H PRN (Reason: pain) Qty: 30 0RF methocarbamol 500 mg tablet 1,000 mg PO Q8H PRN (Reason: pain) Qty: 30 0RF lidocaine 5 % adhesive patch,medicated 1 patch topical Q24H Qty: 15 0RF Rx Instructions: leave on most painful area for up to 12 hrs ondansetron 4 mg tablet,disintegrating 4 mg PO Q8H PRN (Reason: nausea and vomiting) Qty: 10 0RF Referrals: Latrell Warner MD [Primary Care Provider, Family Practice] - In 1 week Problem List Clinical Impression: Chronic ulcer of right foot due to diabetes mellitus Patient/Caregiver Discharge Instructions Education Materials: [facility] Print Language: Austrian Stand Alone Forms: Janessa Award Info., Patient Portal Info Letter PA/ENVIRONMENTAL CONSULTANT Supervising Physician PA/ENVIRONMENTAL CONSULTANT Supervising Physician: Bess
[2025-01-01 21:53] LABS: Basophils # (Auto) 0.1 Thou/mm3 (0.0-0.2); Basophils % (Auto) 0 % (0-2.5); Eosinophils # (Auto) 0.1 Thou/mm3 (0.0-0.5); Eosinophils % (Auto) 1 % (0-10); Hematocrit 41.7 % (36.0-46.0); Hemoglobin 14.3 g/dL (12.0-16.0); Immature Granulocytes Auto 0.06 Thou/mm3 (0.00-0.00); Lymphocytes # (Auto) 7.8 Thou/mm3 (1.0-4.8); Lymphocytes % (Auto) 63 % (10-50); Mean Corpuscular HGB Conc 34.3 g/dl (31.0-37.0); Mean Corpuscular Hemoglobin 30.5 pg (25.0-35.0); Mean Corpuscular Volume 89 fL (80-100); Monocytes # (Auto) 0.8 Thou/mm3 (0.0-0.8); Monocytes % (Auto) 6 % (0-12); Neutrophils # (Auto) 3.5 Thou/mm3 (1.8-7.7); Neutrophils % (Auto) 28 % (37-80); Nucleated Red Blood Cell # 0.00 Thou/mm3 (0.00-0.00); Nucleated Red Blood Cell % 0 /100 WBC (0); Platelet Count 232 Thou/mm3 (140-440); RDW Standard Deviation 43.6 fL (36.4-46.3); Red Blood Count 4.69 Miln/mm3 (4.00-5.20); White Blood Count 12.3 Thou/mm3 (3.6-11.0)
[2025-01-01 22:13] LABS: Alanine Aminotransferase 24 U/L (10-49); Albumin, Serum 4.5 gm/dL (3.5-5.0); Albumin/Globulin Ratio 1.8 (1.2-2.2); Alkaline Phosphatase 71 U/L (46-116); Anion Gap 6 (7-16); Aspartate Amino Transferase 23 U/L (0-34); BUN/Creatinine Ratio 9 Ratio (12-20); Bilirubin,Total 0.2 mg/dL (0.3-1.2); Blood Urea Nitrogen 8 mg/dL (9-23); C-Reactive Protein < 0.5 mg/dL (0.0-0.9); Calcium 10.0 mg/dL (8.3-10.6); Calcium (Corrected) 10.0 mg/dL (8.5-10.1); Carbon Dioxide 28.3 mMol/L (20.0-31.0); Chloride 110 mMol/L (98-107); Creatinine (Component) 0.9 mg/dL (0.6-1.3); Estimated Creatinine Clearance 77.2 mL/min (>60); Globulin 2.5 gm/dL (2.3-3.5); Glucose 158 mg/dL (74-106); Osmolality,Calculated 288 (275-295); Potassium 4.1 mMol/L (3.4-5.1); Sodium 144 mMol/L (136-145); Total Protein 7.0 gm/dL (5.7-8.2); eGFR > 60 See Note
[2025-01-01 22:28] LABS: Sed Rate (ESR) 6 mm/hr (0-20)
[2025-01-01 23:58] LABS: Path Review Blood Smear Sent to Pathologist
== END 2025-01-02 00:33 | disposition home or self-care (01) ==
PROVIDERS: Physician Assistant; Emergency Provider Emergency Medicine; PCP Family Medicine
DX: E11.621 Type 2 diabetes mellitus with foot ulcer (principal); L97.519 Non-pressure chronic ulcer of other part of right foot with unspecified severity; Z79.84 Long term (current) use of oral hypoglycemic drugs
CPT/HCPCS: 36415; 73630; 80053; 85025; 85652; 86140; 99284